=== PATIENT | male | born 1985 | race Caucasian/White ===

== ENCOUNTER 2017-01-11 21:44 | Emergency (ER) | payer OTHER, MEDICAID ==
[2017-01-11 22:02] VITALS: TEMP 98.1; O2SAT 96
[2017-01-11] MEDS ORDERED: PROPARACAINE 0.5% 15 ML OPHT DROP OP ONE (22:03)
[2017-01-11] MEDS ORDERED: FLUORESCEIN SODIUM 1 MG STRIP OP ONE ×2 (22:59)
--- NOTE | 2017-01-11 23:13 | EDPHY ---
H & P HPI/ROS: Chief complaint. Got something in my eye HPI. 31-year-old male works in [employer] thinks he got something in his eye though was unaware at the time, but gradually he has had increasing redness and irritation. No decreased vision. No previous history of eye problems. Slight problem with allergies. No sick contacts. No recent upper respiratory infection ROS Constitutional. no fever/chills, no weakness Eyes. Left eye foreign body sensation ENT. no sore throat, no nasal drainage Cardiovascular. no chest pain Respiratory. no shortness of breath, no cough Abdominal. no abdominal pain, no nausea/vomiting, no diarrhea . no problems urinating MS. no calf pain/swelling, no neck/back pain, no joint pain Skin. no rash Lymph. no swollen glands Neuro. no headache, no dizziness, no difficulty walking or with speech Past Medical/Surgical History: Depression Social History: Single, nonsmoker, no alcohol Smoking Status: Never smoked Physical Exam: General Appearance: Alert well-developed male mild distress vitals are stable Eyes: Pupils equal round reactive. Left eye is injected and there is a little bit of yellowish exudate in the corners of the eyes. funduscopic exam is normal. ENT, Mouth: Mucous membranes are moist. Respiratory: There are no retractions, lungs are clear to auscultation. Cardiovascular: Regular rate and rhythm. Gastrointestinal: Abdomen is soft and nontender, no masses, bowel sounds normal. Neurological: Awake and alert, sensory and motor exams grossly normal. Skin: Warm and dry, no rashes. Musculoskeletal: Neck is supple nontender. Extremities symmetrical, full range of motion. Psychiatric: Patient is oriented X 3, there is no agitation. Constitutional: Initial Vital Signs Temperature (C) 36.7 C 01/11/17 22:00 Heart Rate 80 01/11/17 22:00 Respiratory Rate 18 01/11/17 22:00 Blood Pressure 152/93 H 01/11/17 22:00 O2 Sat (%) 96 01/11/17 22:00 O2 Delivery Mode Room Air Allergies/Adverse Reactions: No Known Allergies Allergy (Unverified 01/11/17 22:02) Home Medications: Medication Instructions Recorded buPROPion SR [Wellbutrin 150mg SR 01/11/17 (*)] Medical Decision Making Procedures: Alcaine is instilled in the eye. Upper lid is everted with no evidence for foreign body. Fluorescein is instilled in the eye. The eye is examined under slit lamp. I do not see any fluorescence. I do not see any evidence of foreign body corneal abrasion, residual rust ring. The patient's return to the chair and thefluorescein is irrigated from the eye. I again everted the upper lid and I still do not see a foreign body ED Course/Re-evaluation: Patient remained stable. He and I discussed exam, treatment plan including criteria for return importance of follow-up further evaluation. He expresses understanding and agreement Differential Diagnosis: It appears that this may be conjunctivitis. I certainly thought there was going to be a foreign body or corneal abrasion or residual rust ring but I do not see this. Anterior chamber appears normal without hyphema - Data Points Medications Given: Discontinued Medications Fluorescein Sodium (Emiey-L-Oskhk) 1 mg OP EDNOW ONE Stop: 01/11/17 23:00 Last Admin: 01/11/17 23:20 Dose: 1 mg Proparacaine HCl (Alcaine 0.5%) 2 drops OP EDNOW ONE Stop: 01/11/17 22:04 Last Admin: 01/11/17 22:07 Dose: 1 drop Departure - Departure Disposition: Home, Routine, Self-Care Clinical Impression: Conjunctivitis Qualifiers: Conjunctivitis type: acute Acute conjunctivitis type: unspecified Laterality: left Qualified Code(s): H10.32 - Unspecified acute conjunctivitis, left eye Condition: Good Instructions: Conjunctivitis (ED) Additional Instructions: Antibiotic eyedrops using 2 drops 4 times daily for 3 days. Percocet or ibuprofen as needed for discomfort. Call eye doctor tomorrow morning to arrange further examination. Referrals: NONE *PRIMARY CARE P,. [Primary Care Provider] - As per Instructions Bart العراقي MD [Medical Doctor] - 1-2 days without fail
[2017-01-11] MEDS ORDERED: OXYCODONE/APAP 5/325MG PREPACK#4 BTL TAKEHOME ONE (23:41)
[2017-01-11] MEDS ORDERED: OFLOXACIN 0.3% SOLN PREPACK OPHT.BTL TAKEHOME ONE (23:41)
[2017-01-11 23:58] VITALS: BP 126/83; PULSE 83; RESP 14
== END 2017-01-11 23:52 | disposition home or self-care (01) ==
DX: H10.32 Unspecified acute conjunctivitis, left eye (principal)